=== PATIENT | female | born 1990 | race Caucasian/White ===

== ENCOUNTER 2019-09-29 09:13 | Day surgery (SDC) | payer MEDICAID ==
[~2019-09-29] VITALS: Ht 167.6 cm; Wt 98.4 kg
[2019-09-29 11:27] LABS: ALBUMIN 3.4 g/dL (3.4-5.0); ANION GAP 13.2 (8-16); CARBON DIOXIDE 25.3 mmol/L (21-32); CREATININE 0.5 mg/dL (0.6-1.3); POTASSIUM 3.5 mmol/L (3.5-5.1); TOTAL BILIRUBIN 0.3 mg/dL (0.0-1.0)
[2019-09-29] MEDS ORDERED: ONDANSETRON 4 MG/2 ML VIAL ONE (12:05)
[2019-09-29] MEDS ORDERED: KETOROLAC 30 MG/ML VIAL ONE (12:05)
[2019-09-29] MEDS ORDERED: PREN-380 PO (12:17)
[2019-09-29] MEDS ORDERED: ONDANSETRON 4 MG/2 ML VIAL IVP PRN (12:25)
--- NOTE | 2019-09-29 14:00 | NUR ---
RECEIVED PT FROM OR NURSE, PT IS STABLE, NO SIGNS OF RESPIRATORY DISTRESS NOTED, PT HAS LEFT HAND 20 G RUNNING LACTATED RINGER AT 125ML, ALVES CATHETER IN PLACE, PT UNABLE TO MOVE FEET FROM SPINAL TAP, PT DENIES PAIN, WILL CONTINUE TO MONITOR, INTRODUCE SELF AND INTRODUCE THE ROOM TO THE PT, UPDATE WHITEBOARD, FAMILY AT BEDSIDE, CALL LIGHT WITHIN REACH.
[2019-09-29 14:05] LABS: APPEARANCE,URINE CLEAR (CLEAR); BILIRUBIN,URINE NEGATIVE (NEGATIVE); BLOOD, URINE NEGATIVE (NEGATIVE); COLOR,URINE YELLOW (YELLOW); LEUKOCYTE ESTERASE ,URINE TRACE (NEGATIVE); NITRITE, URINE NEGATIVE (NEGATIVE); UGLUCOSE NEGATIVE (NEGATIVE)
[2019-09-29 14:11] LABS: RBC,URINE 0 /HPF (0-5); WBC,URINE 0-5 /HPF (0-5)
[2019-09-29] MEDS: LACTATED RINGERS 1,000 ML IV SCH ×2 (15:13→20:42)
--- NOTE | 2019-09-29 16:00 | NUR ---
PT DISCHARGED HOME, IV SITE REMOVED AND IT WAS INTACT, DISCHARGE INSTRUCTIONS GIVEN, PT VERBALIZED UNDERSTANDING, PT REFUSED PNA SHOT, PT IS STABLE, WHEELED PT OUT TO THE CAR, PT AMBULATED INTO THE CAR, PT WALKED WITH STEADY GAIT, PT STABLE. Addendum: 09/29/19 at 1639 by Chelita Priest RN WRONG PT. THIS PT IS CURRENTLY IN ROOM , STABLE, AT BEDSIDE.
--- NOTE | 2019-09-29 18:30 | NUR ---
PT GOT UP AND WALKED TO THE BATHROOM WITH STEADY GAIT, PT VOIDED YELLOW URINE, NO SIGNS OF ACTIVE BLEEDING, PT AMBULATED BACK TO BED AND SAT DOWN, PT IS STABLE, NO SIGNS OF RESPIRATORY DISTRESS.
--- NOTE | 2019-09-29 19:30 | NUR ---
RECEIVED BEDSIDE REPORT FROM DAY SHIFT NURSE. PATIENT IS AWAKE, ALERT, AND COOPERATIVE. RESPIRATION EVEN UNLABORED ON ROOM AIR. NO DISTRESS NOTED. SKIN IS WARM AND DRY. IV PATENT AND INTACT. PLAN OF CARE WAS DISCUSSED. ALL SAFETY MEASURES IN PLACE. BED IS AT LOW POSITION. CALL LIGHT WITHIN REACH AND VERBALIZES ITS USE. WILL CONTINUE TO MONITOR.
[2019-09-29 20:19] VITALS: BP 129/83
--- NOTE | 2019-09-29 21:02 | NUR ---
TIMBER SIZER AT BEDSIDE DOING ULTRASOUND. HEART TONE 155.
--- NOTE | 2019-09-29 21:03 | NUR ---
EDUCATED PATIENT ON DISEASE PROCESS, MEDS, S/SX, WHEN TO GO TO ER. EDUCATED ON THE IMPORTANCE TO FOLLOW UP WITH PCP. VERBALIZE UNDERSTANDING. ALL PAPER WORKS SIGNED. REMOVED IV. PATIENT IN STABLE CONDITION.
--- NOTE | 2019-09-29 21:05 | NUR ---
PATIENT LEFT THE FACILITY IN STABLE CONDITION. PATIENT LEFT WITH THE SPOUSE AND HEADED TO HOME.
== END 2019-09-29 21:05 | disposition home or self-care (01) ==
LOC: MOR 09:13 → MMU 09:20 → MTU 16:22 → MOR 21:05
PROVIDERS: ATTEND Obstetrics & Gynecology
DX: O34.31 Maternal care for cervical incompetence, first trimester (principal); Z3A.12 12 weeks gestation of pregnancy; Z90.49 Acquired absence of other specified parts of digestive tract
CPT/HCPCS: 36415; 59320; 76815; 80053; 81001; 86886; 86900; 86901; J0690; J1885; J2405; J7060; Q0092

== ENCOUNTER 2019-12-30 11:21 | Observation (INO) | payer MEDICAID ==
[~2019-12-30] VITALS: Ht 167.6 cm; Wt 104.3 kg
[2019-12-30] MEDS ORDERED: BETAMETH ACET/BETAMETH NA PH 30 MG/5 ML VIAL IM ONE (12:10)
[2019-12-30 12:17] VITALS: BP 130/66
[2019-12-30] MEDS ORDERED: PREN-380 PO (12:22)
[2019-12-30] MEDS ORDERED: FISH10005 PO (12:22)
== END 2019-12-30 13:05 | disposition home or self-care (01) ==
LOC: MLD 11:21
PROVIDERS: ADMIT Obstetrics & Gynecology; ATTEND Obstetrics & Gynecology
DX: O26.892 Other specified pregnancy related conditions, second trimester (principal); R10.9 Unspecified abdominal pain; Z3A.25 25 weeks gestation of pregnancy
CPT/HCPCS: 81000; 96372; G0378; J0702

== ENCOUNTER 2019-12-31 11:37 | Observation (INO) | payer MEDICAID ==
[~2019-12-31] VITALS: Ht 167.6 cm; Wt 104.3 kg
[~2019-12-31 11:37] MED LIST: FISH10005 PO; PREN-380 PO
[2019-12-31] MEDS ORDERED: BETAMETH ACET/BETAMETH NA PH 30 MG/5 ML VIAL IM SCH (12:25)
== END 2019-12-31 13:45 | disposition home or self-care (01) ==
LOC: MLD 11:37
PROVIDERS: ADMIT Obstetrics & Gynecology; ATTEND Obstetrics & Gynecology
DX: O26.892 Other specified pregnancy related conditions, second trimester (principal); R12 Heartburn; R10.9 Unspecified abdominal pain; Z3A.20 20 weeks gestation of pregnancy; Z91.013 Allergy to seafood
CPT/HCPCS: 96372; G0378; J0702

== ENCOUNTER 2020-03-16 10:27 | Inpatient (IN) | payer MEDICAID, SELFPAY ==
[~2020-03-16] VITALS: Ht 167.6 cm; Wt 112.0 kg
[2020-03-16 11:31] VITALS: BP 129/70
[2020-03-16 11:57] LABS: BILIRUBIN,URINE NEGATIVE (NEGATIVE); BLOOD, URINE TRACE-I (NEGATIVE); COLOR,URINE YELLOW (YELLOW); LEUKOCYTE ESTERASE ,URINE 1+ (NEGATIVE); NITRITE, URINE NEGATIVE (NEGATIVE); UGLUCOSE NEGATIVE (NEGATIVE)
[2020-03-16] MEDS ORDERED: TRA200 PO (12:08)
[2020-03-16] MEDS ORDERED: ASPI-1822 PO (12:08)
[2020-03-16 12:42] LABS: APPEARANCE,URINE HAZY (CLEAR); RBC,URINE 0-5 /HPF (0-5)
[2020-03-16 16:32] LABS: ALBUMIN 3.1 g/dL (3.4-5.0); ANION GAP 24.7 (8-16); CARBON DIOXIDE 13.4 mmol/L (21-32); CREATININE 0.9 mg/dL (0.6-1.3); POTASSIUM 4.1 mmol/L (3.5-5.1); TOTAL BILIRUBIN 0.3 mg/dL (0.0-1.0)
[2020-03-16 17:57] LABS: BASOPHILS % (AUTO) 0.2 % (0.0-2.0); EOSINOPHILS % (AUTO) 0.4 % (0.0-4.0); HEMATOCRIT 37.1 % (36-48); HEMOGLOBIN 12.2 g/dL (12.0-16.0); LYMPHOCYTES # (AUTO) 1.8 K/uL (2.5-16.5); LYMPHOCYTES % (AUTO) 23.7 % (20.5-51.1); MEAN CORPUSCULAR HEMOGLOBIN 31 pg (27-31); MEAN CORPUSCULAR HGB CONC 33 g/dL (33-37); MEAN CORPUSCULAR VOLUME 93.9 fL (80-94); MONOCYTES # (AUTO) 0.4 K/uL (0.8-1.0); MONOCYTES % (AUTO) 5.5 % (1.7-9.3); NEUTROPHILS # (AUTO) 5.4 K/uL (1.8-7.7); NEUTROPHILS % (AUTO) 70.2 % (42.2-75.2); PLATELET COUNT (AUTO) 286 K/uL (140-450); RED BLOOD CELL COUNT(AUTO) 3.95 MIL/uL (4.20-5.40); RED CELL DISTRIBUTION WIDTH 13.9 % (11.6-13.7); WHITE BLOOD COUNT (AUTO) 7.7 K/uL (4.8-10.8)
[2020-03-16] MEDS: LACTATED RINGERS 1,000 ML IV SCH ×2 (19:32→23:00)
[2020-03-16] MEDS ORDERED: OXYTOCIN 20 UNITS/LR PREMIX 1,000 ML IV ONE (19:36)
[2020-03-16] MEDS ORDERED: MORPHINE SULFATE 2 MG/ML SYR IVP PRN (19:40)
[2020-03-16] MEDS ORDERED: CARBOPROST 250 MCG/ML AMP IM PRN (20:25)
[2020-03-16] MEDS ORDERED: METHYLERGONOVINE 0.2 MG/ML AMP IM PRN (20:25)
[2020-03-16] MEDS: OXYTOCIN 20 UNITS in LACTATED RINGERS 1,000 ML IV SCH (20:42)
[2020-03-16] MEDS ORDERED: ROPIVACAINE 0.2%/NS PREMIX 200 ML EPI ONE (23:56)
[2020-03-17] MEDS: OXYTOCIN 20 UNITS in LACTATED RINGERS 1,000 ML IV SCH ×2 (00:58→16:37)
[2020-03-17] MEDS: LACTATED RINGERS 1,000 ML IV SCH ×2 (02:35→10:30)
--- NOTE | 2020-03-17 08:50 | NUR ---
PATIENT HAS BEEN SCREENED AND CATEGORIZED LOW NUTRITION RISK. PATIENT WILL BE SEEN WITHIN 7 DAYS OF ADMISSION. 03/23/[address]
[2020-03-17] MEDS ORDERED: ROPIVACAINE 0.2%/NS PREMIX 200 ML EPI ONE (13:40)
[2020-03-17] MEDS ORDERED: OXYTOCIN 20 UNITS/LR PREMIX 1,000 ML IV ONE (16:14)
[2020-03-17] MEDS ORDERED: DOCUSATE SODIUM 100 MG GELCAP PO PRN (19:45)
[2020-03-17] MEDS ORDERED: OXYTOCIN 10 UNITS/ML VIAL IM PRN (19:45)
[2020-03-17] MEDS ORDERED: BENZOCAINE/MENTHOL 20%-0.5% 60 GM CAN TP PRN (19:45)
[2020-03-17] MEDS ORDERED: METHYLERGONOVINE 0.2 MG TAB PO PRN (19:45)
[2020-03-17] MEDS ORDERED: IBUPROFEN 600 MG TAB PO PRN ×2 (19:45)
[2020-03-17] MEDS ORDERED: bisacodyL 5 MG TABEC PO PRN (19:45)
[2020-03-17] MEDS ORDERED: SIMETHICONE 80 MG TAB.CHEW PO PRN (19:45)
[2020-03-17] MEDS ORDERED: MEASLES, MUMPS, AND RUBELLA 1 VIAL SQVAC PRN (19:45)
[2020-03-17] MEDS ORDERED: METHYLERGONOVINE 0.2 MG/ML AMP IM PRN (19:45)
[2020-03-17] MEDS ORDERED: IBUPROFEN 800 MG TAB PO PRN (19:45)
[2020-03-17] MEDS ORDERED: IBUPROFEN 800 MG TAB ONE (20:05)
[2020-03-17 20:43] LABS: BARBITURATE, URINE NEGATIVE ng/ml (NEG <=200); BENZODIAZEPINE, URINE NEGATIVE ng/mL (NEG <=200); CANNABINOID, URINE NEGATIVE ng/mL (NEG <=50); COCAINE, URINE NEGATIVE ng/mL (NEG <=300); OPIATE, URINE NEGATIVE ng/mL (NEG <=2000); PHENCYCLIDINE SCREEN,URINE NEGATIVE ng/mL (NEG <=25)
[2020-03-18 08:02] LABS: HEMATOCRIT 31.1 % (36-48); HEMOGLOBIN 10.6 g/dL (12.0-16.0)
== END 2020-03-19 22:13 | disposition home or self-care (01) | DRG 560 ==
LOC: MLD 10:27 → OBSVTOIN 19:30 → MFCC 03-17 10:35
PROVIDERS: ADMIT Obstetrics & Gynecology; ATTEND Obstetrics & Gynecology
PROC: 10E0XZZ Delivery of Products of Conception, External Approach (ICD-10-PCS; principal; 2020-03-17)
PROC: 3E0234Z Introduction of Serum, Toxoid and Vaccine into Muscle, Percutaneous Approach (ICD-10-PCS; 2020-03-17)
PROC: 0UCC7ZZ Extirpation of Matter from Cervix, Via Natural or Artificial Opening (ICD-10-PCS; 2020-03-17)
PROC: 3E0R3BZ Introduction of Anesthetic Agent into Spinal Canal, Percutaneous Approach (ICD-10-PCS; 2020-03-17)
PROC: 00HU33Z Insertion of Infusion Device into Spinal Canal, Percutaneous Approach (ICD-10-PCS; 2020-03-17)
DX: O34.33 Maternal care for cervical incompetence, third trimester (principal); O10.92 Unspecified pre-existing hypertension complicating childbirth; O99.02 Anemia complicating childbirth; D50.0 Iron deficiency anemia secondary to blood loss (chronic); Z37.0 Single live birth; Z3A.37 37 weeks gestation of pregnancy; Z37.9 Outcome of delivery, unspecified; Z20.828 Contact with and (suspected) exposure to other viral communicable diseases; Z23 Encounter for immunization
CPT/HCPCS: 36415; 59409; 76805; 80053; 80305; 81001; 85018; 85025; 86592; 86886; 86900; 86901; 87086; G0378; J2590; J2795; J7120; Q0092; U0003-CS

== ENCOUNTER 2020-11-03 07:51 | Day surgery (SDC) | payer MEDICAID, SELFPAY ==
[2020-11-01 14:41] LABS: BASOPHILS % (AUTO) 0.1 % (0.0-2.0); EOSINOPHILS # (AUTO) 0.1 K/uL (0-0.4); EOSINOPHILS % (AUTO) 0.6 % (0.0-4.0); HEMATOCRIT 35.7 % (36-48); HEMOGLOBIN 12.4 g/dL (12.0-16.0); LYMPHOCYTES # (AUTO) 2.2 K/uL (2.5-16.5); LYMPHOCYTES % (AUTO) 21.9 % (20.5-51.1); MEAN CORPUSCULAR HEMOGLOBIN 31 pg (27-31); MEAN CORPUSCULAR HGB CONC 35 g/dL (33-37); MEAN CORPUSCULAR VOLUME 89.2 fL (80-94); MONOCYTES # (AUTO) 0.5 K/uL (0.8-1.0); NEUTROPHILS # (AUTO) 7.3 K/uL (1.8-7.7); NEUTROPHILS % (AUTO) 72.4 % (42.2-75.2); PLATELET COUNT (AUTO) 299 K/uL (140-450); RED BLOOD CELL COUNT(AUTO) 4.01 MIL/uL (4.20-5.40); RED CELL DISTRIBUTION WIDTH 13.5 % (11.6-13.7); WHITE BLOOD COUNT (AUTO) 10.1 K/uL (4.8-10.8)
[2020-11-01 14:45] LABS: APPEARANCE,URINE CLEAR (CLEAR); BILIRUBIN,URINE NEGATIVE (NEGATIVE); BLOOD, URINE NEGATIVE (NEGATIVE); COLOR,URINE YELLOW (YELLOW); LEUKOCYTE ESTERASE ,URINE NEGATIVE (NEGATIVE); NITRITE, URINE NEGATIVE (NEGATIVE); PH,URINE 6.5 (5.0-9.0); UGLUCOSE NEGATIVE (NEGATIVE)
[~2020-11-03] VITALS: Ht 167.6 cm; Wt 106.1 kg
[2020-11-03] MEDS ORDERED: DEXAMETHASONE 4 MG/ML VIAL ONE ×2 (17:20→18:21)
[2020-11-03] MEDS ORDERED: ONDANSETRON 4 MG/2 ML VIAL ONE ×2 (17:20→18:21)
[2020-11-03] MEDS ORDERED: ONDANSETRON 4 MG/2 ML VIAL IVP PRN (17:35)
[2020-11-03] MEDS ORDERED: LACTATED RINGERS 1,000 ML IV SCH (17:35)
[2020-11-03] MEDS ORDERED: HYDROmorphone 1 MG/ML AMP IVP PRN (17:35)
[2020-11-03] MEDS ORDERED: MEPERIDINE 25 MG/ML SYR IVP PRN (17:35)
[2020-11-03] MEDS ORDERED: diphenhydrAMINE 50 MG/ML VIAL IVP PRN (17:35)
[2020-11-03] MEDS ORDERED: KETOROLAC 30 MG/ML VIAL IVP SCH (18:00)
[2020-11-03 20:29] VITALS: BP 110/63
[2020-11-03 21:00] VITALS: BP 127/74
== END 2020-11-03 21:10 | disposition home or self-care (01) ==
LOC: MTU 07:51 → MDS 07:51
PROVIDERS: ATTEND Obstetrics & Gynecology
DX: O34.32 Maternal care for cervical incompetence, second trimester (principal); O99.612 Diseases of the digestive system complicating pregnancy, second trimester; K21.9 Gastro-esophageal reflux disease without esophagitis; O16.2 Unspecified maternal hypertension, second trimester; Z3A.17 17 weeks gestation of pregnancy
CPT/HCPCS: 36415; 59320; 81003; 85025; 86886; 86900; 86901; 87086; 87426; J1100; J1885; J2405

== ENCOUNTER 2021-02-02 06:37 | Observation (INO) | payer MEDICAID, SELFPAY ==
[2021-02-02 07:20] VITALS: BP 116/65
--- NOTE | 2021-02-02 08:23 | NUR ---
PATIENT HAS BEEN SCREENED AND CATEGORIZED LOW NUTRITION RISK. PATIENT WILL BE SEEN WITHIN 7 DAYS OF ADMISSION. 02/08/[address]
== END 2021-02-02 09:10 | disposition home or self-care (01) ==
LOC: MLD 06:37
PROVIDERS: ADMIT Obstetrics & Gynecology; ATTEND Obstetrics & Gynecology
DX: O36.8130 Decreased fetal movements, third trimester, not applicable or unspecified (principal); Z20.822 Contact with and (suspected) exposure to COVID-19; O24.419 Gestational diabetes mellitus in pregnancy, unspecified control; O13.3 Gestational [pregnancy-induced] hypertension without significant proteinuria, third trimester; O34.33 Maternal care for cervical incompetence, third trimester; Z3A.30 30 weeks gestation of pregnancy
CPT/HCPCS: 59025; 76819; 81000; 87426; G0378